=== PATIENT | male | born 1960 | race Caucasian/White ===

== ENCOUNTER 2017-11-28 10:02 | Observation (INO) | payer OTHER ==
[~2017-11-28] VITALS: Ht 177.8 cm; Wt 105.9 kg
[2017-11-28] MEDS ORDERED: ASPIRIN 81 MG CHEW PO STA (10:19)
--- NOTE | 2017-11-28 10:35 | EMERGENCY ROOM VISIT NOTE ---
History Report prepared by Brandon: Maggie Liang Under the Supervision of: Dr. Danilo Bosch D.O. First contact with patient: 10:15 Chief Complaint: CARDIAC ASSESSMENT Stated Complaint: CHEST PAIN, ABNORMAL EKG, SENT BY [facility] Nursing Triage Summary: Pt states was having mild substernal chest pain/pressure over the past couple weeks, related to exertion. Pt states went to PCP today and was sent here for abnormal EKG. History of Present Illness The patient is a 56 year old male who presents to the Emergency Room with complaints of intermittent episodes of chest pressure when he exerts himself over the past two weeks. The patient had a regular check up with his PCP this morning where he had EKG done which was abnormal. His PCP sent him to the ED for further evaluation. Presently, the patient denies any pain. He denies any swelling in his legs, back pain, or shortness of breath. The patient states when he has his episodes of pressure it is achey in his central chest. The patient notes some occasional alcohol use but denies any tobacco use. Source of History: patient Onset: two weeks ago Position: chest Quality: ache, pressure Timing: other (episodes) Modifying Factors (Worsening): exertion Associated Symptoms: + chest pain, No SOB, No back pain Review of Systems See HPI for pertinent positives & negatives. A total of 10 systems reviewed and were otherwise negative. Past Medical & Surgical Medical Problems: (1) Depression Family History Patient reports no known family medical history. Social History Smoking Status: Never Smoker Smokeless Tobacco Use: No Alcohol Use: occasionally Occupation Status: employed Current/Historical Medications Scheduled Escitalopram (Lexapro), 10 MG PO DAILY Lisinopril (Zestril), 5 MG PO DAILY Ranitidine (Zantac), 150 MG PO BID Red Yeast Rice Extract (Red Yeast Rice), 600 MG PO BID Allergies Coded Allergies: No Known Allergies (Unverified , 11/28/17) Physical Exam Vital Signs Date Time Temp Pulse Resp B/P (MAP) Pulse Ox O2 Delivery O2 Flow Rate FiO2 11/28/17 12:30 58 20 156/101 99 Room Air 11/28/17 10:49 58 20 157/86 99 Room Air 11/28/17 10:45 95 Room Air 11/28/17 10:30 66 11/28/17 10:09 36.8 63 18 165/100 99 Room Air Physical Exam GENERAL: Patient is awake, alert, and in no acute distress. Patient is resting comfortably and showing no signs of anxiety EYES: The conjunctivae are clear. The pupils are round and reactive. EARS, NOSE, MOUTH AND THROAT: The nose is without any evidence of any deformity. Mucous membranes are moist tongue is midline NECK: The neck is nontender and supple. RESPIRATORY: Normal respiratory effort is noted there is no evidence of wheezing rhonchi or rales CARDIOVASCULAR: Regular rate and rhythm noted there no murmurs rubs or gallops normal S1 normal S2 GASTROINTESTINAL: The abdomen is soft. Bowel sounds are present in all quadrants. Abdomen is nontender MUSCULOSKELETAL/EXTREMITIES: There is no evidence of gross deformity full range of motion is noted in the hips and shoulders SKIN: There is no obvious evidence of any rash. There are no petechiae, pallor or cyanosis noted. NEUROLOGIC: Patient is awake alert and oriented x3 strength is symmetric patellar reflexes are 2+ bilaterally Medical Decision & Procedures ER Provider Diagnostic Interpretation: Radiology results as stated below per my review and radiologist interpretation: CHEST ONE VIEW PORTABLE FINDINGS: The heart is normal in size. Mild superior mediastinal prominence likely relates to the AP portable technique. There is no focal pulmonary consolidation. There is no failure. There are no pleural effusions.[ IMPRESSION: AP portable study. No acute findings. Electronically signed by: Gianfranco Snyder M.D. Laboratory Results Test 11/28/17 10:37 Prothrombin Time 10.5 SECONDS (9.0-12.0) Prothromb Time International Ratio 1.0 (0.9-1.1) Activated Partial Thromboplast Time 25.6 SECONDS (21.0-31.0) Partial Thromboplastin Ratio 1.0 D-Dimer 300 ug/L FEU (0-500) Direct Bilirubin 0.2 mg/dl (0-0.2) Triglycerides Level 216 mg/dl (0-150) Cholesterol Level 203 mg/dl (0-200) HDL Cholesterol 38 mg/dl LDL Cholesterol, Calculated 122 mg/dl VLDL Cholesterol, Calculated 43 mg/dl Cholesterol/HDL Ratio 5.3 Lipase 113 U/L (73-393) Hepatitis C Antibody Screen NEG (NEG) Laboratory results per my review. Medications Administered Medications (Trade) Dose Ordered Sig/Darnell Route Start Time Stop Time Status Last Admin Dose Admin Aspirin (Aspirin Chew) 324 mg NOW STAT PO 2/27/18 10:19 11/28/17 10:21 DC 11/28/17 10:25 324 MG Sodium Chloride 1,000 ml @ 50 mls/hr Q20H IV 11/28/17 12:47 12/28/17 12:46 11/28/17 21:21 50 MLS/HR ECG Per My Interpretation Indication: chest pain Rate (beats per minute): 59 Rhythm: sinus bradycardia Findings: no ectopy, other (T-wave abnormalities in anterior leads) Comparison ECG Date: 12/03/14 Change: T-wave abnormalities new. ED Course 1018: The patient was evaluated in room C6. A complete history and physical examination were performed. 1019: Ordered Aspirin 324 mg PO. 1124: I updated the patient on his test results and the treatment plan. 1127: I paged Dr. YapCardiology. 1206: I discussed the patient's [facility] [place] The patient will be evaluated for further management. 1211: I discussed the patient's case with Dr. YapCardiology. Recommends the patient stay in the hospital for further evaluation. 1251: The patient is resting comfortably. He is agreeable to the treatment plan. Medical Decision Differential diagnosis: Etiologies such as cardiac ischemia, aortic dissection, pulmonary embolism, pneumonia, pneumothorax, musculoskeletal, infections, pericarditis, myocarditis , esophageal rupture, gastrointestinal, as well as others were entertained. Nursing notes reviewed. The patient is a 56-year-old male who presented to the emergency department for chest pain evaluation. The patient initially saw his primary care physician and discussed exertional chest pain symptoms he had been having over the previous 2 weeks. The patient had an EKG done in the office which showed biphasic T waves in the anterior leads. The patient presented to the emergency department and his initial EKG showed some improvement of these findings. I reviewed the patient's EKGs from the office. Given his risk factors I am very concerned that this could represent an underlying coronary lesion. The patient had initial cardiac biomarkers which were negative. At this time he has no pain. He was treated with aspirin. I discussed the patient's laboratory and radiographic studies with him. I also discussed the limitations of the emergency department workup for chest pain with him. Given the patient's risk factors and his initial EKG in the office I do feel the patient is at risk for an acute coronary syndrome. For this reason I discussed his case with the on- call [facility] hospitalist group. They have agreed to evaluate the patient in the emergency department for further management and disposition. I also discussed this case with the on-call [facility] money room supervisor. Medication Reconcilliation Current Medication List: was personally reviewed by me Blood Pressure Screening Patient's blood pressure: Elevated blood pressure Blood pressure disposition: Elevated BP felt to be situational Consults Time Called: 1127 Consulting Physician: Dr. YapCardiology Returned Call: 1211 I discussed the patient's case with Dr. YapCardiology. Recommends the patient stay in the hospital for further evaluation. Additional Consults: Time Called: 1200 Consulted Physician: Dr. Pawan Stallings Returned Call: 1206 Additional Comments: I discussed the patient's case with Dr. Pawan Stallings. The patient will be evaluated for further management. Impression Primary Impression: Exertional chest pain Additional Impression: Abnormal EKG Scribe Attestation The scribe's documentation has been prepared under my direction and personally reviewed by me in its entirety. I confirm that the note above accurately reflects all work, treatment, procedures, and medical decision making performed by me. Departure Information Dispostion Being Evaluated By Hospitalist Referrals Marisa Hernadez C.R.N.P. (PCP) Patient Instructions My [facility] Problem Qualifiers
[2017-11-28] MEDS ORDERED: ESCI10TA17 PO (10:51)
[2017-11-28] MEDS ORDERED: RANI150T85 PO (10:51)
[2017-11-28] MEDS ORDERED: LISI-729 PO (10:51)
[2017-11-28] MEDS ORDERED: RED1CAP5 PO (10:51)
--- NOTE | 2017-11-28 10:58 | DIAGNOSTIC IMAGING REPORT ---
CHEST ONE VIEW PORTABLE CLINICAL HISTORY: Atypical chest pain COMPARISON STUDY: No previous studies for comparison. FINDINGS: The heart is normal in size. Mild superior mediastinal prominence likely relates to the AP portable technique. There is no focal pulmonary consolidation. There is no failure. There are no pleural effusions.[ IMPRESSION: AP portable study. No acute findings. Electronically signed by: Gianfranco Snyder M.D. 11/28/2017 10:57 AM Dictated Date/Time: 11/28/2017 10:54 AM
[2017-11-28 10:59] LABS: BASO % 0.3 %; BASO ABS # 0.02 K/uL (0-0.2); EOS % 2.9 %; EOS ABS # 0.17 K/uL (0-0.5); HEMATOCRIT 40.8 % (42-52); HEMOGLOBIN 14.6 g/dL (14.0-18.0); IG# 0.01 K/uL (0.00-0.02); LYMPH % 34.9 %; LYMPH ABS # 2.03 K/uL (1.2-3.4); MEAN CELL VOLUME 83.8 fL (80-100); MEAN CORPUSCULAR HGB CONC 35.8 g/dl (32-36); MEAN PLATELET VOLUME 10.3 fL (7.4-10.4); MONO % 8.3 %; MONO ABS # 0.48 K/uL (0.11-0.59); NEUT % 53.4 %; PLATELET COUNT 157 K/uL (130-400); RED CELL DISTRIBUTION WIDTH CV 12.7 % (11.5-14.5); RED CELL DISTRIBUTION WIDTH SD 38.6 fL (36.4-46.3); WHITE BLOOD COUNT 5.81 K/uL (4.8-10.8)
[2017-11-28 11:07] LABS: PTT PATIENT 25.6 SECONDS (21.0-31.0)
[2017-11-28 11:15] LABS: ALBUMIN 4.1 gm/dl (3.4-5.0); ALT/SGPT 32 U/L (12-78); BLOOD UREA NITROGEN 17 mg/dl (7-18); CALCIUM 8.7 mg/dl (8.5-10.1); CARBON DIOXIDE 26 mmol/L (21-32); CREATININE 1.23 mg/dl (0.60-1.40); GLUCOSE 87 mg/dl (70-99); LIPASE 113 U/L (73-393); POTASSIUM 3.8 mmol/L (3.5-5.1); SODIUM 138 mmol/L (136-145)
[2017-11-28 11:20] LABS: ALKALINE PHOSPHATASE 67 U/L (45-117); AST/SGOT 16 U/L (15-37); TOTAL PROTEIN 7.5 gm/dl (6.4-8.2)
[2017-11-28] MEDS ORDERED: SODIUM CHLORIDE 0.9% 1000ML 1,000 ML IV SCH (12:47)
--- NOTE | 2017-11-28 12:59 | History and Physical ---
History & Physical Date & Time of Service: Nov 28, 2017 at 12:52 Chief Complaint: Chest Pain, Abnormal Ekg, Sent By [facility] Primary Care Physician: Marisa Hernadez C.R.N.P. History of Present Illness Source: patient, hospital records 56-year-old man with past medical history of hypertension, borderline dyslipidemia presented to the hospital with 2 weeks history of substernal chest pain. Patient said that pain is mainly exertional last about 2-3 minutes, localized in the substernal area, at the most his pain is 4 out of 10 but usually much milder. Sometimes pain is referred to his head, he feels like he is going to have headache but is not referred to the left shoulder or neck. Pain is aggravated by exertion and relieved by rest no other associated factors , denies any dizziness, diaphoresis, nausea or presyncope. Patient has no family history of heart disease that she is aware of but his father might have hypertension. Patient has mild hypertension controlled by only one medicine. Also have mild dyslipidemia controlled by red yeast rice. Patient went for a regular checkup to her primary physician, he was found to have an abnormal EKG and was sent to the ED for further evaluation. Patient does not smoke, drinks alcohol socially Unaware of his grandparents medical history but his parents does not have any cardiac condition Patient 2 weeks ago had a 6 hours flight Family History Patient reports no known family medical history. Social History Smoking Status: Never Smoker Smokeless Tobacco Use: No Occupational Status: employed Allergies Coded Allergies: No Known Allergies (Unverified , 11/28/17) Home Medications Scheduled Escitalopram (Lexapro), 10 MG PO DAILY Lisinopril (Zestril), 5 MG PO DAILY Ranitidine (Zantac), 150 MG PO BID Red Yeast Rice Extract (Red Yeast Rice), 600 MG PO BID Review of Systems Review of system Constitutional: No fever / no chills / no sweats / no weakness / no fatigue Eyes: no blurring of vision / no eye pain / no discharge / no redness ENT: no hearing loss / no epistaxis /no swallowing problems Respiratory: no cough / no wheezing / no SOB / no hemoptysis Cardiovascular: Chest pain as prescribed in HPI/ no lower extremity edema / no palpitation Abdomen: no pain / no nausea / no vomiting / no constipation Musculoskeletal: no joint pain / no muscle pain / no joint swelling Genitourinary: no dysuria / no incontinence / no urinary retention Neurologic: no focal weakness / no numbness/tingling / no ataxia Psychiatric: no depression symptoms / no anxiety / no insomnia Endocrine: no excessive thirst / no excessive urination Hematologic: no abnormal bleeding / no bruising / no LN swelling Skin: No rash / no pallor Physical Exam Vital Signs Date Time Temp Pulse Resp B/P (MAP) Pulse Ox O2 Delivery O2 Flow Rate FiO2 11/28/17 12:30 58 20 156/101 99 Room Air 11/28/17 10:49 58 20 157/86 99 Room Air 11/28/17 10:45 95 Room Air 11/28/17 10:30 66 11/28/17 10:09 36.8 63 18 165/100 99 Room Air Physical examination General patient appears to be comfortable, not in acute distress HEENT: Atraumatic , normocephalic /no jaundice /no pallor /anicteric /no dry mucous membrane /normal external ear inspection Neck: Supple /no swelling /central trach Heart: S1/S2 normal/regular rate and rhythm/no gallop /no rub /no murmur Lungs: Clear to auscultation bilaterally/normal chest with expansion/no rhonchi/ no rales/no wheezing/no use of accessory muscles of respiration Abdomen: Soft/nontender/no guarding/no rebound/no organomegaly/no pulsatile mass Musculoskeletal: No swelling/no edema/no tenderness/normal range of motion Neuro exam: Awake alert oriented 3/cranial nerves II through XII appear to be intact/sensation intact/moves all extremities/no abnormal movements Psychiatric evaluation: No depressed mood/normal affect Skin: No rash on exposed skin area/no erythema Extremity: Normal pulse/no pitting edema/no clubbing or cyanosis Endocrine/lymphatic: No obvious lymphadenopathy /no lymphedema Diagnostics Laboratory Results Results Past 24 Hours Test 11/28/17 10:37 Range/Units White Blood Count 5.81 4.8-10.8 K/uL Red Blood Count 4.87 4.7-6.1 M/uL Hemoglobin 14.6 14.0-18.0 g/dL Hematocrit 40.8 42-52 % Mean Corpuscular Volume 83.8 80-100 fL Mean Corpuscular Hemoglobin 30.0 25-34 pg Mean Corpuscular Hemoglobin Concent 35.8 32-36 g/dl Platelet Count 157 130-400 K/uL Mean Platelet Volume 10.3 7.4-10.4 fL Neutrophils (%) (Auto) 53.4 % Lymphocytes (%) (Auto) 34.9 % Monocytes (%) (Auto) 8.3 % Eosinophils (%) (Auto) 2.9 % Basophils (%) (Auto) 0.3 % Neutrophils # (Auto) 3.10 1.4-6.5 K/uL Lymphocytes # (Auto) 2.03 1.2-3.4 K/uL Monocytes # (Auto) 0.48 0.11-0.59 K/uL Eosinophils # (Auto) 0.17 0-0.5 K/uL Basophils # (Auto) 0.02 0-0.2 K/uL RDW Standard Deviation 38.6 36.4-46.3 fL RDW Coefficient of Variation 12.7 11.5-14.5 % Immature Granulocyte % (Auto) 0.2 % Immature Granulocyte # (Auto) 0.01 0.00-0.02 K/uL Prothrombin Time 10.5 9.0-12.0 SECONDS Prothromb Time International Ratio 1.0 0.9-1.1 Activated Partial Thromboplast Time 25.6 21.0-31.0 SECONDS Partial Thromboplastin Ratio 1.0 Sodium Level 138 136-145 mmol/L Potassium Level 3.8 3.5-5.1 mmol/L Chloride Level 106 98-107 mmol/L Carbon Dioxide Level 26 21-32 mmol/L Anion Gap 6.0 3-11 mmol/L Blood Urea Nitrogen 17 7-18 mg/dl Creatinine 1.23 0.60-1.40 mg/dl Est Creatinine Clear Calc Drug Dose 84.4 ml/min Estimated GFR () 76.7 Estimated GFR (Non- 66.1 BUN/Creatinine Ratio 13.7 10-20 Random Glucose 87 70-99 mg/dl Calcium Level 8.7 8.5-10.1 mg/dl Total Bilirubin 0.6 0.2-1 mg/dl Direct Bilirubin 0.2 0-0.2 mg/dl Aspartate Amino Transf (AST/SGOT) 16 15-37 U/L Alanine Aminotransferase (ALT/SGPT) 32 12-78 U/L Alkaline Phosphatase 67 45-117 U/L Troponin I < 0.015 0-0.045 ng/ml Total Protein 7.5 6.4-8.2 gm/dl Albumin 4.1 3.4-5.0 gm/dl Lipase 113 73-393 U/L Impression Assessment and Plan 56-year-old man presented to the hospital with exertional chest pain relieved by rest. History of recent 6 hours flight 2 weeks ago Assessment Exertional chest pain rule out ACS Hypertension Dyslipidemia controlled with red yeast Obesity History of recent flight/travel rule out DVT/PE plan: Observe at telemetry as chest pain is exertional and relieved by rest, it sounds typical anginal pain, but will order stat d-dimer given his recent history of travel obtain serial cardiac enz NTG SL/topical prn CP consult car repairman pain management Check hemoglobin A1c/lipids to stratify patient risk factors repeat EKG prn chest pain Resuscitation Status FULL RESUSCITATION VTE Prophylaxis Given or contraindicated: Enoxaparin (Lovenox)SQ
[2017-11-28] MEDS ORDERED: ONDANSETRON INJ 2 MG/ML 2 ML VIAL IV PRN (13:00)
[2017-11-28] MEDS ORDERED: ZOLPIDEM TARTRATE 5 MG TAB PO PRN ×2 (13:00)
[2017-11-28] MEDS ORDERED: ALUMINUM/MAGNESIUM/SIMETH (MAALOX MAX) 30 ML UDC PO PRN (13:00)
[2017-11-28] MEDS ORDERED: POLYETHYLENE (MIRALAX) 17 GM PACK PO PRN (13:00)
[2017-11-28] MEDS ORDERED: ACETAMINOPHEN 325 MG TAB PO PRN (13:00)
[2017-11-28] MEDS ORDERED: NITROGLYCERIN 0.4 MG SL PER TAB CHARGE SL PRN (13:00)
[2017-11-28] MEDS ORDERED: MAGNESIUM HYDROXIDE SUSP 30 ML UDC PO PRN (13:00)
[2017-11-28 15:00] VITALS: BP 144/75; PULSE 61; TEMP 37.1; O2SAT 98; Ht 177.8 cm; Wt 105.9 kg
[2017-11-28 16:00] VITALS: O2SAT 98
[2017-11-28 16:03] VITALS: BP 145/95; PULSE 58; TEMP 36.7; O2SAT 93
[2017-11-28] MEDS ORDERED: IV FLUIDS COMPLETED PRN (16:15)
[2017-11-28] MEDS: ATORVASTATIN 40 MG TAB PO SCH (16:32)
[2017-11-28] MEDS: ENOXAPARIN 40 MG/0.4 ML SYR SC SCH (16:32)
--- NOTE | 2017-11-28 19:00 | Cardiology Consultation ---
Cardiology Consultation Date of Consultation: Nov 28, 2017. Requesting Physician: Dr. Amaral Reason for Consultation: Chest Pain History of Present Illness Mr. Jose is a pleasant 56-year-old man admitted in the setting new exertional chest pain over the last 2 weeks. Patient with no prior cardiac history. Has a history mild hypertension, dyslipidemia. No family history of premature coronary disease. Lifelong nonsmoker. Over last 2 weeks endorses exertional chest pressure occurring when walks up steps or AFib walks on level ground with pace. Symptoms are relieved quickly with rest. Longest episode lasted approximately 5 minutes. Last episode 24 hours ago. Pain is nonradiating, no associated shortness of breath, palpitations, presyncope, nausea or diaphoresis. Denies any prior similar episodes. No fevers, chills, productive cough. Had prolonged air travel 2 weeks prior. No lower extremity swelling or pain. Presented to his primary care provider today where reportedly EKG was different than 2015 and sent to ED. In emergency department patient was hypertensive with systolic pressures 150s. He has been chest pain-free all day. His presenting EKG showed sinus rhythm with subtle T-wave abnormalities in V4, V5. No EKG available for comparison. First troponin was negative. Past Medical/Surgical History Medical Problems: 1. Depression 2. Hypertension 3. Dyslipidemia 4. Obesity Family History Patient reports no known family medical history. 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 with grown children. Denies any tobacco, alcohol or illicit drugs. Review of Systems 10 point review of systems was completed and was otherwise negative unless stated in HPI Allergies Coded Allergies: No Known Allergies (Unverified , 11/28/17) Medications Current Inpatient Medications Medications (Trade) Dose Ordered Sig/Darnell Route Start Time Stop Time Status Last Admin Dose Admin Escitalopram Oxalate (Lexapro Tab) 10 mg DAILY PO 11/29/17 09:00 12/29/17 08:59 Lisinopril (Zestril Tab) 5 mg DAILY PO 11/29/17 09:00 12/29/17 08:59 Ranitidine HCl (zANTac TAB) 150 mg BID PO 11/28/17 21:00 12/28/17 20:59 Enoxaparin Sodium (Lovenox Inj) 40 mg Q24H SC 11/28/17 16:00 12/28/17 15:59 11/28/17 16:32 40 MG Sodium Chloride 1,000 ml @ 50 mls/hr Q20H IV 11/28/17 12:47 12/28/17 12:46 Acetaminophen (Tylenol Tab) 650 mg Q4H PRN PO 11/28/17 13:00 12/28/17 12:59 Al Hydrox/Mg Hydrox/Simethicone (Maalox Max Susp) 15 ml Q4H PRN PO 11/28/17 13:00 12/28/17 12:59 Magnesium Hydroxide (Milk Of Magnesia Susp) 30 ml Q12H PRN PO 11/28/17 13:00 12/28/17 12:59 Zolpidem Tartrate (Ambien Tab) 5 mg HSZ PRN PO 11/28/17 13:00 12/28/17 12:59 Ondansetron HCl (Zofran Inj) 4 mg Q6H PRN IV 11/28/17 13:00 12/28/17 12:59 Nitroglycerin (Nitrostat Tab) 0.4 mg UD PRN SL 11/28/17 13:00 12/28/17 12:59 Aspirin (Ecotrin Tab) 325 mg QAM PO 11/29/17 09:00 12/29/17 08:59 Polyethylene (Miralax Powder Packet) 17 gm DAILY PRN PO 11/28/17 13:00 12/28/17 12:59 Atorvastatin Calcium (Lipitor Tab) 40 mg QAM PO 11/28/17 14:24 12/28/17 14:23 11/28/17 16:32 40 MG Miscellaneous (Iv Fluids Completed) 1 ea PRN PRN N/A 11/28/17 16:15 11/28/18 16:14 Physical Exam Vital Signs Past 12 Hours Date Time Temp Pulse Resp B/P (MAP) Pulse Ox O2 Delivery O2 Flow Rate FiO2 11/28/17 16:03 36.7 58 16 145/95 (112) 93 Room Air 11/28/17 16:00 98 Room Air 11/28/17 15:00 37.1 61 18 144/75 98 Room Air 11/28/17 14:03 62 20 163/89 11/28/17 13:30 63 20 150/112 Room Air 11/28/17 12:30 58 20 156/101 99 Room Air 11/28/17 10:49 58 20 157/86 99 Room Air 11/28/17 10:45 95 Room Air 11/28/17 10:30 66 11/28/17 10:09 36.8 63 18 165/100 99 Room Air General: Comfortable, no acute distress Eyes: Sclerae anicteric, extraocular movements intact HENT: Oropharynx clear mucous membranes moist Neck: Normal carotid upstrokes, no bruits. No JVD. Lungs: Clear to auscultation bilaterally, no rhonchi or wheezes Cardiac: Regular rate and rhythm, no murmurs, rubs or gallops. Vascular: 2+ radial, DP and PT pulses. No varicosities. Abdomen: Soft, nontender, nondistended, positive bowel sounds. Extremities: Well perfused, no peripheral edema Skin: No rashes or lesions. Neuro: Nonfocal Psych: Alert orient x3, normal affect and mood Data Laboratory Results: Last 24 Hours Test 11/28/17 10:37 11/28/17 18:27 White Blood Count 5.81 K/uL Red Blood Count 4.87 M/uL Hemoglobin 14.6 g/dL Hematocrit 40.8 % Mean Corpuscular Volume 83.8 fL Mean Corpuscular Hemoglobin 30.0 pg Mean Corpuscular Hemoglobin Concent 35.8 g/dl Platelet Count 157 K/uL Mean Platelet Volume 10.3 fL Neutrophils (%) (Auto) 53.4 % Lymphocytes (%) (Auto) 34.9 % Monocytes (%) (Auto) 8.3 % Eosinophils (%) (Auto) 2.9 % Basophils (%) (Auto) 0.3 % Neutrophils # (Auto) 3.10 K/uL Lymphocytes # (Auto) 2.03 K/uL Monocytes # (Auto) 0.48 K/uL Eosinophils # (Auto) 0.17 K/uL Basophils # (Auto) 0.02 K/uL RDW Standard Deviation 38.6 fL RDW Coefficient of Variation 12.7 % Immature Granulocyte % (Auto) 0.2 % Immature Granulocyte # (Auto) 0.01 K/uL Prothrombin Time 10.5 SECONDS Prothromb Time International Ratio 1.0 Activated Partial Thromboplast Time 25.6 SECONDS Partial Thromboplastin Ratio 1.0 D-Dimer 300 ug/L FEU Sodium Level 138 mmol/L Potassium Level 3.8 mmol/L Chloride Level 106 mmol/L Carbon Dioxide Level 26 mmol/L Anion Gap 6.0 mmol/L Blood Urea Nitrogen 17 mg/dl Creatinine 1.23 mg/dl Est Creatinine Clear Calc Drug Dose 84.4 ml/min Estimated GFR () 76.7 Estimated GFR (Non- 66.1 BUN/Creatinine Ratio 13.7 Random Glucose 87 mg/dl Calcium Level 8.7 mg/dl Total Bilirubin 0.6 mg/dl Direct Bilirubin 0.2 mg/dl Aspartate Amino Transf (AST/SGOT) 16 U/L Alanine Aminotransferase (ALT/SGPT) 32 U/L Alkaline Phosphatase 67 U/L Troponin I < 0.015 ng/ml Total Protein 7.5 gm/dl Albumin 4.1 gm/dl Triglycerides Level 216 mg/dl Cholesterol Level 203 mg/dl HDL Cholesterol 38 mg/dl LDL Cholesterol, Calculated 122 mg/dl VLDL Cholesterol, Calculated 43 mg/dl Cholesterol/HDL Ratio 5.3 Lipase 113 U/L Hepatitis C Antibody Screen NEG Imaging: Chest x-ray--no acute cardiopulmonary process EKG: Sinus bradycardia, ventricular rate of 59, subtle biphasic T-waves V4, V5 Telemetry reviewed: Sinus rhythm no events Assessment & Plan 1. Chest pain 2. Hypertension 3. Dyslipidemia Patient here with new onset typical chest pain over last 2 weeks. Cardiac enzymes unremarkable, EKG nonspecific. No other clear noncardiac etiologies for patient's chest pain and suspicion for possible unstable angina is elevated. In that setting recommend additional risk stratification. Low MAYTE/ zechariah score suggesting patient is low risk for adverse cardiac events and in that setting would proceed with stress test/ischemia guided strategy. Recommend going forward-- -- continue to monitor on telemetry --trend troponin --NPO past midnight with plan for exercise stress echo in a.m. --titrate ROBBI-inhibitor for hypertension --regardless of stress test findings patient at elevated risk for ASCVD going forward and would continue aspirin, high-intensity statin on discharge
[2017-11-28 20:05] VITALS: BP 155/91; PULSE 64; TEMP 37.1; O2SAT 97
[2017-11-28] MEDS: RANITIDINE HCL 150 MG TAB PO SCH (21:20)
[2017-11-28] MEDS: LISINOPRIL 5 MG TAB PO SCH (21:21)
[2017-11-28] MEDS: ESCITALOPRAM OXALATE 10 MG TAB PO SCH (21:21)
[2017-11-28 23:18] VITALS: BP 148/88; PULSE 60; TEMP 36.9; O2SAT 98
[2017-11-29] VITALS (12 sets, daily range): BP systolic 124–149; BP diastolic 78–98; PULSE 55–80; TEMP 36.5–37.2; O2SAT 94–98
[2017-11-29 07:08] LABS: BASO % 0.5 %; BASO ABS # 0.03 K/uL (0-0.2); EOS % 3.6 %; EOS ABS # 0.23 K/uL (0-0.5); HEMATOCRIT 41.2 % (42-52); HEMOGLOBIN 14.6 g/dL (14.0-18.0); IG# 0.01 K/uL (0.00-0.02); LYMPH % 41.2 %; LYMPH ABS # 2.63 K/uL (1.2-3.4); MEAN CELL VOLUME 84.1 fL (80-100); MEAN CORPUSCULAR HEMOGLOBIN 29.8 pg (25-34); MEAN CORPUSCULAR HGB CONC 35.4 g/dl (32-36); MEAN PLATELET VOLUME 9.8 fL (7.4-10.4); MONO ABS # 0.51 K/uL (0.11-0.59); NEUT % 46.5 %; NEUT ABS # 2.97 K/uL (1.4-6.5); PLATELET COUNT 152 K/uL (130-400); RED CELL DISTRIBUTION WIDTH CV 12.8 % (11.5-14.5); RED CELL DISTRIBUTION WIDTH SD 38.5 fL (36.4-46.3); WHITE BLOOD COUNT 6.38 K/uL (4.8-10.8)
[2017-11-29] MEDS: ATORVASTATIN 40 MG TAB PO SCH (07:27)
[2017-11-29] MEDS: RANITIDINE HCL 150 MG TAB PO SCH ×2 (07:28→22:03)
[2017-11-29 07:46] LABS: ALBUMIN 3.7 gm/dl (3.4-5.0); CALCIUM 8.7 mg/dl (8.5-10.1); CREATININE 1.3 mg/dl (0.60-1.40)
[2017-11-29] MEDS ORDERED: ASPIRIN 325 MG ECTAB PO SCH (09:00)
[2017-11-29] MEDS ORDERED: PERFLUTREN LIPID MICROSPHERE (DEFINITY) IV ONE (09:34)
[2017-11-29 09:42] LABS: HEMOGLOBIN A1C 5.2 % (4.5-5.6)
--- NOTE | 2017-11-29 11:58 | Hospitalist Progress Note ---
Hospitalist Progress Note Date of Service Nov 29, 2017. (Michelle Campo PA-C) Subjective Pt evaluation today including: conversation w/ patient, physical exam, chart review, lab review, review of studies Pain: None PO Intake: NPO for cardiac cath Voiding: no voiding problems The patient was seen and examined this morning. Pt reports doing well currently , he had stress echo this morning which he failed. Pt notes he has noticed increased chest pain over the past 2 weeks when he was doing something exertional like walking at a fast pace, going up stairs or lifting something heavy. As far as risk factors: pt has gained 20-25lbs in the past year. He does not exercise regularly, last time was about 1.5 years ago. Never smoked but was exposed by parents who smoked in the home until age 20. He does not take medication for lipids, but takes red yeast. Pt understands the plan for a cardiac cath today by Dr. Albarran. All his questions and concerns were answered. Constitutional: No fever, No chills, No sweats, No fatigue Eyes: No diplopia, No problem reported ENT: No nasal symptoms, No trouble swallowing Respiratory: No cough, No wheezing, No shortness of breath Cardiovascular: No chest pain, No orthopnea, No edema Abdomen: No pain, No nausea, No vomiting, No diarrhea, No constipation Musculoskeletal: No joint pain, No muscle pain Male : No dysuria Neurologic: No weakness, No numbness/tingling (Michelle Campo PA-C ) Objective Vital Signs Date Time Temp Pulse Resp B/P (MAP) Pulse Ox O2 Delivery O2 Flow Rate FiO2 11/29/17 10:55 37.0 80 18 144/87 (106) 98 Room Air 11/29/17 08:00 Room Air 11/29/17 07:45 36.8 59 18 142/93 (109) 98 Room Air 11/29/17 04:00 Room Air 11/29/17 03:39 36.5 55 17 140/91 (107) 98 Room Air 11/29/17 00:00 Room Air 11/28/17 23:18 36.9 60 18 148/88 (108) 98 Room Air 11/28/17 20:05 37.1 64 20 155/91 (112) 97 Room Air 11/28/17 20:00 Room Air 11/28/17 16:03 36.7 58 16 145/95 (112) 93 Room Air 11/28/17 16:00 98 Room Air 11/28/17 15:00 37.1 61 18 144/75 98 Room Air 11/28/17 14:03 62 20 163/89 11/28/17 13:30 63 20 150/112 Room Air 11/28/17 12:30 58 20 156/101 99 Room Air (Michelle Campo PA-C) Physical Exam General Appearance: WD/WN, no apparent distress, + obese Eyes: PERRL, EOMI ENT: hearing grossly normal, pharynx normal Neck: supple, no JVD Respiratory/Chest: chest non-tender, lungs clear, no respiratory distress, no accessory muscle use Cardiovascular: regular rate, rhythm, + systolic murmur Abdomen: normal bowel sounds, non tender, soft Extremities: non-tender, no pedal edema, no calf tenderness Neurologic/Psychiatric: alert, normal mood/affect, oriented x 3 Skin: normal color, warm/dry (Michelle Campo, JAZZY-C) Laboratory Results Last 24 Hours Test 11/28/17 18:27 11/29/17 00:29 11/29/17 06:49 Troponin I < 0.015 ng/ml < 0.015 ng/ml < 0.015 ng/ml White Blood Count 6.38 K/uL Red Blood Count 4.90 M/uL Hemoglobin 14.6 g/dL Hematocrit 41.2 % Mean Corpuscular Volume 84.1 fL Mean Corpuscular Hemoglobin 29.8 pg Mean Corpuscular Hemoglobin Concent 35.4 g/dl Platelet Count 152 K/uL Mean Platelet Volume 9.8 fL Neutrophils (%) (Auto) 46.5 % Lymphocytes (%) (Auto) 41.2 % Monocytes (%) (Auto) 8.0 % Eosinophils (%) (Auto) 3.6 % Basophils (%) (Auto) 0.5 % Neutrophils # (Auto) 2.97 K/uL Lymphocytes # (Auto) 2.63 K/uL Monocytes # (Auto) 0.51 K/uL Eosinophils # (Auto) 0.23 K/uL Basophils # (Auto) 0.03 K/uL RDW Standard Deviation 38.5 fL RDW Coefficient of Variation 12.8 % Immature Granulocyte % (Auto) 0.2 % Immature Granulocyte # (Auto) 0.01 K/uL Sodium Level 138 mmol/L Potassium Level 4.0 mmol/L Chloride Level 106 mmol/L Carbon Dioxide Level 25 mmol/L Anion Gap 7.0 mmol/L Blood Urea Nitrogen 18 mg/dl Creatinine 1.30 mg/dl Est Creatinine Clear Calc Drug Dose 79.0 ml/min Estimated GFR () 71.7 Estimated GFR (Non- 61.9 BUN/Creatinine Ratio 13.5 Random Glucose 96 mg/dl Estimated Average Glucose 103 mg/dl Hemoglobin A1c 5.2 % Calcium Level 8.7 mg/dl Magnesium Level 2.3 mg/dl Total Bilirubin 0.6 mg/dl Aspartate Amino Transf (AST/SGOT) 14 U/L Alanine Aminotransferase (ALT/SGPT) 29 U/L Alkaline Phosphatase 67 U/L Total Protein 7.0 gm/dl Albumin 3.7 gm/dl Globulin 3.3 gm/dl Albumin/Globulin Ratio 1.1 (Michelle Campo PA-C) Assessment and Plan Chest pain r/o Diastolic CHF HTN HLD Obesity, BMI 33.3 - Admitted to tele - Troponins negative x 3 - Pt failed stress treadmill test this morning so has been scheduled for cardiac cath today at 1pm per Dr. Albarran Pt will go to ICU after procedure, trend troponins - 2D Echo completed: * -- Conclusions -- * Left ventricular systolic function is normal. * Grade I diastolic dysfunction, (abnormal relaxation pattern). * Right ventricular systolic pressure is normal. * Abnormal exercise echocardiogram with development of index symptoms and wall motion abnormality suggestive of ischemia in the LAD territory - Cardiology on board - appreciate recs - Started atorvastatin 40 mg QPM as high statin therapy with elevated cholesterol of 203 and triglycerides on 216 - Diet and weight loss encouraged at bedside today- he admits to gaining 25 lbs in the last 1.5 yrs. - Check hemoglobin A1c = 5.2 - Drinks 3 alcoholic drinks per week. - No hx of smoking however was exposed to second hand x 20 years d/t parents smoking in home. DVT ppx: heparin, teds, scds CODE STATUS: FULL CODE Disposition: From home, lives with , will go to ICU after cardiac cath today. (Michelle Campo PA-C) Supervising Note Dr. Padilla I performed a history and physical examination on the patient. I reviewed above note and agree with it. I discussed plan with APC and patient. During my face to face encounter with the patient, I answered all of the patient's questions. II saw patient after the cath. Patient did not require to be transferred to the ICU. Patient denies any symptoms at this time. I explained to him the importance of continuing the plavix, ASA, and statin. I reiterated that if he is non compliant with the Plavix, he may have serious complications that may even be life threatening. Patient showed understanding. Patient is hoping for an early discharge. (Catrachito Padilla M.D.)
--- NOTE | 2017-11-29 13:05 | EXERCISE STRESS ECHO ---
*NOTICE TO RECEIVING DEMOCRAT AGENCY This information is strictly Confidential and protected under [place] law. [place] law prohibits you from making any further disclosure of this information unless further disclosure is expressly permitted by the written consent of the person to whom it pertains or is authorized by law. A general authorization for the release of medical or other information is not sufficient for this purpose. Hospital accepts no responsibility if the information is made available to any other person, INCLUDING THE PATIENT. Interpretation Summary * Name: RENEE COLLAZO Study Date: 11/29/2017 08:00 AM BP: 137/96 mmHg * Patient Location: C.2T\S\S230\S\1 HR: 80 * : 1960 (M/d/yyyy) Gender: Male Height: 70 in * Age: 56 yrs Ethnicity: [place] Weight: 237 lb * Ordering Physician: Abad Albarran * Referring Physician: Self, Referred * Performed By: Mary Alice Doan RDCS * * Reason For Study: Chest pain * BSA: 2.2 m2 * -- Conclusions -- * Left ventricular systolic function is normal. * Grade I diastolic dysfunction, (abnormal relaxation pattern). * Right ventricular systolic pressure is normal. * Abnormal exercise echocardiogram with development of index symptoms and wall motion abnormality suggestive of ischemia in the LAD territory Procedure Details * ECHOEX, CPT #[id number] * ECHO DOPPLER, CPT #[id number] * ECHO COLOR FLOW, CPT #[id number] * A contrast injection of Definity was performed to improve assessment of LV function. * Contrast was injected into an intravenous site in the right arm. * One vial of Definity ultrasound contrast was diluted in normal saline to a total volume of 10 ml. A total of '4' ml of solution was administered during imaging. * Lot # [id number] of Definity utilized for procedure. * Expiration date NOV 20. * The attending nurse who injected the contrast agent was Amparo Davalos RN. Left Ventricular Findings with Stress * Abnormal exercise echocardiogram with development of index symptoms and wall motion abnormality suggestive of ischemia in the LAD territory Left Ventricle * The left ventricle is normal in size. * There is normal left ventricular wall thickness. * Ejection Fraction = 65-70%. * Left ventricular systolic function is normal. * Grade I diastolic dysfunction, (abnormal relaxation pattern). * The left ventricular wall motion is normal at rest. Right Ventricle * The right ventricle is normal in size and function. * The right ventricular systolic function is normal as assessed by tricuspid annular plane systolic excursion (TAPSE) (normal >1.5 cm). Atria * The left atrial size is normal. * Right atrial size is normal. Mitral Valve * The mitral valve anatomy is normal. * Significant mitral regurgitation is absent. Tricuspid Valve * The tricuspid valve is not well visualized, but is grossly normal. * There is trace tricuspid regurgitation. * Right ventricular systolic pressure is normal. Aortic Valve * The aortic valve is normal in structure and function. * The aortic valve is trileaflet. * No hemodynamically significant valvular aortic stenosis. * There is no significant aortic regurgitation. Great Vessels * The aortic root is normal size. Pericardium * There is no pericardial effusion. Stress Parameters * Normal sinus rhythm with incomplete right bundle branch block * There is ST segment flattening without significant depression at peak exertion * The stress portion of this study was personally supervised by the undersigned interpreting physician. * Rest heart rate was '80' BPM. * Rest blood pressure was '137/96' * Maximum heart rate achieved was 141 bpm. * Maximum heart rate was 84 % of maximum age-predicted heart rate. * Maximum blood pressure was '209/101' * Total exercise time was '10:00' * Maximum exercise MET level achieved was '11.60' METS * Maximum treadmill speed was '4.20' miles per hour. * Maximum treadmill elevation was '16.00'% grade. * Exercise was terminated due to 'patient fatigue' Left Ventricular Findings with Stress * Baseline EKG demonstrated normal sinus rhythm with incomplete right bundle branch block At peak exertion there was some ST segment flattening without overt depression Baseline echocardiogram was normal There was development significant wall motion abnormality involving akinesis and mild dyskinesis of the distal anterior wall and apex. There was some mild hypokinesis involving the distal lateral wall Patient did report mild chest discomfort at peak exertion similar to his presenting symptoms MMode 2D Measurements and Calculations IVSd 1.0 cm LVIDd 4.6 cm LVIDs 2.9 cm LVPWd 10 cm IVS/LVPW 1.0 FS 38.0 % EDV(Teich) 98.3 ml ESV(Teich) 31.3 ml EF(Teich) 68.2 % EDV(cubed) 98.6 ml ESV(cubed) 23.5 ml EF(cubed) 76.1 % LV mass(C)d 163.1 grams LV mass(C)dI 72.7 grams/m\S\2 SV(Teich) 67.0 ml SI(Teich) 29.9 ml/m\S\2 SV(cubed) 75.1 ml SI(cubed) 33.5 ml/m\S\2 Ao root diam 3.1 cm Ao root area 7.4 cm\S\2 ACS 2.1 cm LA dimension 3.6 cm asc Aorta Diam 2.7 cm LA/Ao 1.2 LVOT diam 2.0 cm LVOT area 3.1 cm\S\2 LVAd ap4 36.1 cm\S\2 LVLd ap4 8.1 cm EDV(MOD-sp4) 131.3 ml EDV(sp4-el) 136.8 ml LVAs ap4 18.2 cm\S\2 LVLs ap4 6.3 cm ESV(MOD-sp4) 43.6 ml ESV(sp4-el) 44.9 ml EF(MOD-sp4) 66.8 % EF(sp4-el) 67.2 % LVAd ap2 35.4 cm\S\2 LVLd ap2 8.5 cm EDV(MOD-sp2) 119.3 ml EDV(sp2-el) 126.2 ml LVAs ap2 17.9 cm\S\2 LVLs ap2 6.6 cm ESV(MOD-sp2) 40.6 ml ESV(sp2-el) 41.3 ml EF(MOD-sp2) 66.0 % EF(sp2-el) 67.3 % LVLd %diff 4.3 % EDV(MOD-bp) 126.3 ml LVLs %diff 4.6 % ESV(MOD-bp) 42.9 ml EF(MOD-bp) 66.0 % SV(MOD-sp4) 87.7 ml SI(MOD-sp4) 39.1 ml/m\S\2 SV(MOD-sp2) 78.7 ml SI(MOD-sp2) 35.1 ml/m\S\2 SV(MOD-bp) 83.4 ml SI(MOD-bp) 37.2 ml/m\S\2 SV(sp4-el) 91.9 ml SI(sp4-el) 40.9 ml/m\S\2 SV(sp2-el) 84.9 ml SI(sp2-el) 37.8 ml/m\S\2 Doppler Measurements and Calculations MV E max jade 66.5 cm/sec MV A max jade 56.3 cm/sec MV E/A 1.2 MV dec time 0.28 sec Ao V2 max 122.5 cm/sec Ao max PG 6.0 mmHg Ao max PG (full) 2.1 mmHg JOHNNIE(V,A) 2.5 cm\S\2 JOHNNIE(V,D) 2.5 cm\S\2 LV V1 max PG 3.9 mmHg LV V1 max 98.5 cm/sec PA V2 max 115.4 cm/sec PA max PG 5.3 mmHg PA acc slope 423.9 cm/sec\S\2 PA acc time 0.14 sec PI max jade 146.6 cm/sec PI max PG 8.6 mmHg PI dec slope 137.0 cm/sec\S\2 PI P1/2t 313.4 msec TR max jade 186.8 cm/sec PA pr(Accel) 17.2 mmHg
[2017-11-29] MEDS ORDERED: MIDAZOLAM HCL 1 MG/ML 2ML VIAL ONE (14:37)
[2017-11-29] MEDS ORDERED: HEPARIN SOD (PORCINE) 1000 UNIT/ML 10 ML VIAL ONE (14:38)
[2017-11-29] MEDS ORDERED: FENTANYL CITRATE INJ 50 MCG/1 ML 2 ML VIAL ONE (14:38)
[2017-11-29] MEDS ORDERED: NiCARDipine HCL INJ 2.5 MG/ML 10 ML AMP ONE (14:38)
[2017-11-29] MEDS ORDERED: NITROGLYCERIN/D5W 100MCG/ML 20ML SYR ONE (14:38)
[2017-11-29] MEDS ORDERED: CLOPIDOGREL BISULFATE 300 MG TAB PO ONE (15:43)
--- NOTE | 2017-11-29 15:51 | Pre Sedation Assessment ---
Pre Sedation Assessment General Date of Sedation: Nov 29, 2017. Vital Signs Past 12 Hours Date Time Temp Pulse Resp B/P (MAP) Pulse Ox O2 Delivery O2 Flow Rate FiO2 11/29/17 12:00 Room Air 11/29/17 10:55 37.0 80 18 144/87 (106) 98 Room Air 11/29/17 08:00 Room Air 11/29/17 07:45 36.8 59 18 142/93 (109) 98 Room Air 11/29/17 04:00 Room Air Review Cardiovascular: regular rate, rhythm, no edema Lungs: chest non-tender, lungs clear Pre-Sedation Airway Assessment Smoking Status: Never Smoker Hx of Sleep Apnea: No Hx of difficult intubation: No Short Thick Neck: Yes Thyro-mental Distance: > 3 Finger Breadths Oral Cavity: WNL Mallampati Classification: Class II ASA Classification: Class II NPO Status Date of Last Intake of Fluids: Nov 28, 2017 Time of Last Intake of Fluids: 2099 Date of Last Intake of Solids: Nov 28, 2017 Time of Last Intake of Solids: 2099 Procedure Planning Contraindications for Sedation: None Current Medications Reviewed: Yes Notes The planned sedation has been discussed with the patient. Informed Consent was obtained. I have identified the patient, determined the appropriateness of sedation and have assessed the patient immediately prior to the procedure. All medicine(s) and interventions are by my order.
--- NOTE | 2017-11-29 15:51 | Post Sedation Assessment ---
Post Sedation Assessment General Date of Sedation Nov 29, 2017. Vital Signs: Vital Signs Past 12 Hours Date Time Temp Pulse Resp B/P (MAP) Pulse Ox O2 Delivery O2 Flow Rate FiO2 11/29/17 12:00 Room Air 11/29/17 10:55 37.0 80 18 144/87 (106) 98 Room Air 11/29/17 08:00 Room Air 11/29/17 07:45 36.8 59 18 142/93 (109) 98 Room Air 11/29/17 04:00 Room Air Post Procedure Recovery Score Activity: (2) Moves 4 extremities * Respiration: (2) Deep breath/cough Circulation: (2) +/-20% PreAnes Value Consciousness: (2) Fully Awake Oxygen Saturation: (2) > 92% On Room Air Post Anesthesia Score: 10 Discharge Sedation Level of Care: Fast Track Phase II Post Sedation Plan On clinical assessment, the patient appears to have tolerated the sedation without complications. Patient is recovering as anticipated. Patient will continue to be monitored by nursing and may be discharged when sedation discharge criteria are met per below protocol. Upon Completions of procedure and additional 15 minutes continue every 5 minute vital signs and the P.A.R. score; then discharge to a Phase I or Fast Track to Phase II per the following guidelines: * Discharge Patient to appropriate Phase II area if PAR is 8 or greater or return to pre- procedure baseline. The post - procedure orders will be as directed. * If PAR score is less than 8 or not return to pre-procedure baseline then patient will follow Phase I monitoring till PAR is reached for Phase II. The Phase I may be done in procedure room or may call to secure a Phase I area. * If naloxone or flumazenil are used for reversal, hold in Phase I for an additional 60 -120 minutes before discharge to Phase II. Please call the Sedation Physician to re-evaluate and complete post-note for discharge to Phase II area. Do NOT discharge from procedure sedation or Phase 1 until post- sedation evaluation note is complete by procedure /sedation MD Sedation Discharge Instructions to be given to the patient at discharge to home.
[2017-11-29] MEDS: ENOXAPARIN 40 MG/0.4 ML SYR SC SCH (16:00)
[2017-11-29] MEDS ORDERED: ACETAMINOPHEN 325 MG TAB PO PRN (16:00)
[2017-11-29] MEDS ORDERED: SODIUM CHLORIDE 0.9% 1000ML 750 ML IV SCH (16:00)
--- NOTE | 2017-11-29 16:00 | Cardiac Catheterization ---
Procedure Note Procedure Date Nov 29, 2017. Pre-Procedure Diagnosis Angina, Positive Stress Test AUC Score 7 Post-Procedure Diagnosis Severe CAD, Successful PCI, Normal Intracardiac Pressures Procedure(s) Performed Coronary Angiography, Left Heart Cath, Drug Eluting Stent Wind Field Service Manager Deion Marking Devices Assembler(s) Abby Estimated Blood Loss 20 Medication(s) Clopidogrel, Fentanyl, Heparin, Nicardipine, Nitroglycerin, Versed, Lidocaine 1% Summary of Findings Indication: Accelerating angina; High-risk stress test Access: 6Fr right radial artery Catheters: [place], JL3.5; EBU3.5 guide Findings: LM - Angiographically normal LAD - 95% mid LAD stenosis; distal luminal irregularities Circumflex - Large caliber vessel; luminal irregularities; gives off 3 OMs'; large 2nd OM with 40-50% proximal stenosis RCA - Dominant, large vessel; 20% proximal; 20-30% mid; distal luminal irregularities LVEDP - 12 -- PCI -- Antithrombotic therapy: Heparin, Clopidogrel Procedure: LM cannulated with EBU 3.5 guide BMW wire passed across lesion into distal vessel Mid LAD lesion predilated with 3.0 compliant balloon Dilated lesion stented with 4.0 x 15 Xience JAMAL Stent post-dilated with 4.5 noncompliant balloon IC vasodilators administered for spasm Post procedure MAYTE 3 flow, stent well expanded with minimal residual stenosis and no apparent cardiac complications. Arterial Closure: TR Band Summary: 1. Severe single vessel coronary artery disease - 95% focal mid LAD - 40-50% proximal OM2 2. Normal intracardiac filling pressure 3. Successful PCI of mid LAD with single drug-eluting stent (4.0 x 15 Xience; post-dilated with 4.5 NC). Recommendations: To PCU for continued monitoring Loaded with Clopidogrel 600mg in laboratory coordinator Continue dual-antiplatelet therapy for at least 6 months Continue statin, ASCVD risk factor modification Consult cardiac Rehab Hemodynamics Rest Ao: 122/75/97 Final Ao: 153/115/134 LV: 128/12 Recommendations PCI without planned CABG Specimens None Radiation Exposure (mGy) 3809 Contrast (mls) 170 Fluids (cc crystalloids) 80 Drains None Anesthesia Moderate Procedural Complication(s) None Disposition PCU ACC Data Cardiac Status Clinical evaluation leading to the procedure CAD Presntation: Unstable angina, Positive Stress Test Anginal Classification: CCS II Heart Failure: No, NYHA Class: CCS I Cardiogenic Shock w/in 24Hrs: No Cardiac Arrest w/in 24Hrs: No Imaging studies past 6 months: Yes Stress studies past 6 months: Yes Stress Echocardiogram: Yes - Positive, Risk/Extent of Ischemia (High) Stress Testing w/SPECT MPI: No Cardiac CTA: No Closure Device Percutaneous Entry Location: Radial Closure Device: Radial Band Recommendations: PCI without planned CABG PCI Indication: Unstable Angina, + Stress Test Lesion Segment Name: Mid LAD Culprit Artery: Yes Stenosis Prior to Rx (%): 95 Chronic Total Occlusion: No IVUS: No FFR: No Pre-Procedure MAYTE Flow: 3 Previously Treated Lesion: No Lesion Complexity: Non-High/Non-C Lesion Length (mm): 12 Thrombus Present: Yes Bifurcation Lesion: No Guidewire Across Lesion: Yes Guidewire: Post-Procedure MAYTE Flow: 3 Device(s) Deployed: Yes Intraprocedure Events Significant Dissection: No Perforation: No
--- NOTE | 2017-11-29 16:09 | Cardiology Follow-Up ---
Subjective Subjective Date of Service: Nov 29, 2017. Pt evaluation today including: conversation w/ patient, physical exam, chart review, lab review, review of studies, conversation w/ network security consultant, review of inpatient medication list Additional Details: No chest pain overnight. Tele reviewed -- sinus antonia Stress echo showed LAD distribution hypokinesis. Chest pain reproduced. Problem List Medical Problems: (1) Abnormal EKG Status: Acute (2) Exertional chest pain Status: Acute Review of Systems Constitutional: No fever, No chills, No sweats, No fatigue Eyes: No diplopia, No problem reported ENT: No nasal symptoms, No trouble swallowing Respiratory: No cough, No wheezing, No shortness of breath Cardiac: No chest pain, No orthopnea, No edema Abdomen: No pain, No nausea, No vomiting, No diarrhea, No constipation Musculoskeletal: No joint pain, No muscle pain Male : No dysuria Neurologic: No weakness, No numbness/tingling Objective Vital Signs Last Vital Signs Documentation Date Time Temp Pulse Resp B/P (MAP) Pulse Ox O2 Delivery O2 Flow Rate FiO2 11/29/17 12:00 Room Air 11/29/17 10:55 37.0 80 18 144/87 (106) 98 Physical Exam: General Appearance: no apparent distress, + obese ENT: hearing grossly normal, pharynx normal Neck: no JVD Respiratory/Chest: chest non-tender, lungs clear, no respiratory distress Cardiovascular: regular rate, rhythm Abdomen: normal bowel sounds, non tender, soft Extremities: non-tender, no pedal edema, no calf tenderness Neurologic/Psychiatric: alert, normal mood/affect, oriented x 3 Skin: normal color, warm/dry Assessment and Plan 1. Unstable angina/High risk stress test 2. Severe mid LAD CAD 3. Hypertension 4. Dyslipidemia Cardiac cath today showed severe mid LAD disease treated with single JAMAL. Good angiographic result and patient chest pain free post procedure. -- monitor on tele. standard TR band care -- Loaded with plavix in manager cath lab. Continue on DAPT for at least 1 year. -- high-intensity statin -- continue ROBBI, titrate up as BP tolerates. -- cardiac rehab as an d/c -- likely discharge tomorrow AM.
[2017-11-29] MEDS: LISINOPRIL 5 MG TAB PO SCH (22:03)
[2017-11-29] MEDS: ESCITALOPRAM OXALATE 10 MG TAB PO SCH (22:05)
[2017-11-30 03:55] VITALS: BP 125/81; PULSE 57; TEMP 36.7; O2SAT 98
[2017-11-30 07:35] VITALS: BP 134/89; PULSE 52; TEMP 36.5; O2SAT 96
[2017-11-30] MEDS: RANITIDINE HCL 150 MG TAB PO SCH (07:47)
[2017-11-30] MEDS ORDERED: ATOR80TA PO (08:53)
[2017-11-30] MEDS ORDERED: PLV75 PO (08:53)
[2017-11-30] MEDS ORDERED: ASPEC81 PO (08:53)
[2017-11-30] MEDS ORDERED: ATORVASTATIN 40 MG TAB PO SCH (09:00)
[2017-11-30] MEDS ORDERED: CLOPIDOGREL BISULFATE 75 MG TAB PO SCH (09:00)
[2017-11-30] MEDS ORDERED: ASPIRIN 81 MG ECTAB PO SCH (09:00)
--- NOTE | 2017-11-30 09:01 | Discharge Instructions ---
Discharge Instructions Date of Service Nov 30, 2017. Admission Reason for Admission: Exertional Chest Pain Discharge Discharge Diagnosis / Problem: Exertional Chest pain Discharge Goals Goal(s): Decrease discomfort, Improve function, Increase independence, Improve disease control Activity Recommendations Activity Limitations: per Instructions/Follow-up section Lifting Limitations: no more than 25 pounds, gradually increase as tolerated Exercise/Sports Limitations: rest today, gradually increase as tolerated May Resume Sexual Activity: when tolerated Shower/Bathe: no limitations Driving or Machine Use: resume 1 day after discharge . Instructions / Follow-Up Instructions / Follow-Up You were admitted to [facility] with exertional chest pain and diagnosed with Coronary Artery Disease and underwent cardiac catheterization by Dr. Albarran on . 1 drug eluting stent was placed in the LAD (main vessel of the heart). During your stay here you were treated with intravenous medications for pain, anti-platelet agents, and other supportive care. It is important for you to attempt to lose some weight ( 10-15 lbs) by eating a healthier diet and exercising as tolerated. Start exercising gradually, you may do light physical activity until seen by cardiology. Your goal should be to work up 25 minutes of cardiac activity at least 5 days per week. Please discuss this with cardiology at your next appointment Medications: Continue taking your medications as prescribed. Continue taking Plavix 75 mg daily, ASA 81 mg daily, and atorvastatin 80 mg daily as newly prescribed. Appointments: Follow up with PCP within 1 week. Follow up with cardiac rehab and cardiology for a routine appointment within 1- 2 weeks. Current Hospital Diet Patient's current hospital diet: AHA Diet (Heart Healthy) Discharge Diet Recommended Diet: AHA Diet (Heart Healthy) Procedures Procedures Performed: Cardiac Cath 11/29/17 Pending Studies Studies pending at discharge: no Laboratory Results Hemoglobin A1c Test 11/29/17 06:49 Range/Units Estimated Average Glucose 103 mg/dl Hemoglobin A1c 5.2 4.5-5.6 % Lipid Panel Test 11/28/17 10:37 Range/Units Triglycerides Level 216 H 0-150 mg/dl Cholesterol Level 203 H 0-200 mg/dl HDL Cholesterol 38 mg/dl Cholesterol/HDL Ratio 5.3 LDL Cholesterol, Calculated 122 mg/dl Medical Emergencies . Who to Call and When: Medical Emergencies: If at any time you feel your situation is an emergency, please call 911 immediately. . Non-Emergent Contact Non-Emergency issues call your: Primary Care Provider, General Doc Call Non-Emergent contact if: temperature is above 100.5, your pain is not controlled, your pain is worsening, your pain is unusual for you, your pain is concerning you, you have any medication questions other concerns with your health. Call 911 or go directly to the Emergency Department if you experience any of the following: Chest pain, chest tightness, shortness of breath, abdominal pain , lightheadedness, dizziness, gastrointestinal bleeding, or have any other concerns regarding your health. . Past History Medical & Surgical History: (1) Exertional chest pain (2) CAD (coronary artery disease) (3) S/P coronary artery stent placement . "Provider Documentation" section prepared by Mary Campo. . [place] Drug Monitoring Program Search Results: no issues identified
[2017-11-30 09:38] VITALS: BP 134/89; PULSE 52; TEMP 36.5; O2SAT 96
--- NOTE | 2017-11-30 15:37 | Discharge Summary ---
Discharge Summary Date of Service Nov 30, 2017. Discharge Summary Admission Date: Nov 28, 2017 at 13:04 Discharge Date: Nov 30, 2017 Discharge Disposition: Home Principal Diagnosis: Anginal chest pain Problems/Secondary Diagnoses: Medical Problems: (1) CAD (coronary artery disease) (2) Depression Surgical Problems: (1) S/P coronary artery stent placement Procedures: CHEST ONE VIEW PORTABLE 11/28/17 IMPRESSION: AP portable study. No acute findings. Cardiac Catheterization 11/29 Findings: LM - Angiographically normal LAD - 95% mid LAD stenosis; distal luminal irregularities Circumflex - Large caliber vessel; luminal irregularities; gives off 3 OMs'; large 2nd OM with 40-50% proximal stenosis RCA - Dominant, large vessel; 20% proximal; 20-30% mid; distal luminal irregularities 2D Echo 11/29 * -- Conclusions -- * Left ventricular systolic function is normal. * Grade I diastolic dysfunction, (abnormal relaxation pattern). * Right ventricular systolic pressure is normal. * Abnormal exercise echocardiogram with development of index symptoms and wall motion abnormality suggestive of ischemia in the LAD territory Consultations: Cardiology Medication Reconciliation New Medications: Aspirin (Aspirin EC Low Dose) 81 Mg Ectab 81 MG PO QAM for 30 Days, #30 TAB Atorvastatin (Lipitor) 80 Mg Tab 1 TAB PO DAILY for 30 Days, #30 TAB 0 Refills Clopidogrel Bisulfate (Clopidogrel) 75 Mg Tab 75 MG PO QAM for 30 Days, #30 TAB Continued Medications: Escitalopram (Lexapro) 10 Mg Tab 10 MG PO DAILY, TAB Lisinopril (Zestril) 5 Mg Tab 5 MG PO DAILY, TAB Ranitidine (Zantac) 150 Mg Tab 150 MG PO BID, TAB Discontinued Medications: Red Yeast Rice Extract (Red Yeast Rice) 300 Mg Cap 600 MG PO BID Discharge Exam The patient was seen and examined this morning. Pt reports doing well today. He denies any chest pain, shortness of breath, exertional pain, palpitations or flutter. Discussion was held with pt and his at bedside regarding medications and lifestyle modifications with diet and exercise. All their questions and concerns were addressed. ROS: Constitutional: No fever, No chills, No sweats, No fatigue Eyes: No diplopia, No problem reported ENT: No nasal symptoms, No trouble swallowing Respiratory: No cough, No wheezing, No shortness of breath Cardiovascular: No chest pain, No orthopnea, No edema Abdomen: No pain, No nausea, No vomiting, No diarrhea, No constipation Musculoskeletal: No joint pain, No muscle pain Male : No dysuria Neurologic: No weakness, No numbness/tingling Physical Exam General Appearance: WD/WN, no apparent distress, + obese Eyes: PERRL, EOMI ENT: hearing grossly normal, pharynx normal Neck: supple, no JVD Respiratory/Chest: chest non-tender, lungs clear, no respiratory distress, no accessory muscle use Cardiovascular: regular rate, rhythm, + systolic murmur Abdomen: normal bowel sounds, non tender, soft Extremities: non-tender, no pedal edema, no calf tenderness Neurologic/Psychiatric: alert, normal mood/affect, oriented x 3 Skin: normal color, warm/dry Hospital Course 56 yo M with Anginal Chest pain Diastolic CHF HTN HLD Obesity, BMI 33.3 - Admitted to tele - Troponins negative x 3 - Pt failed stress treadmill test so underwent cardiac cath on 11/[address] Albarran. 1 JAMAL was placed to the LAD. Continue plavix and asa for dual antiplatelet therapy Started atorvastatin 40 mg QPM as high statin therapy - Diet and weight loss encouraged at bedside again he admits to gaining 25 lbs in the last 1.5 yrs. Ask that pcp monitors. - Check hemoglobin A1c = 5.2 - Drinks 3 alcoholic drinks per week. - No hx of smoking however was exposed to second hand x 18 years d/t parents smoking in home. DVT ppx: heparin, teds, scds CODE STATUS: FULL CODE Disposition: From home, lives with , discharge to home today. Supervising Note Dr. Padilla I performed a history and physical examination on the patient. I reviewed above note and agree with it. I discussed plan with APC and patient. During my face to face encounter with the patient, I answered all of the patient's questions. Patient was concerned about when he will start cardiac rehab. This willl occur after he follows up with Dr. Albarran. He will see cardiology in about 3 weeks. Cardio will schedule his appointment. Total Time Spent: Greater than 30 minutes This includes examination of the patient, discharge planning, medication reconciliation, and communication with other providers. Discharge Instructions Please refer to the electronic Patient Visit Report (Discharge Instructions) for additional information. Follow-Up Follow up with PCP within 1 week. Follow up with cardiac rehab and cardiology for a routine appointment within 1- 2 weeks. Additional Copies To Marisa Hernadez C.R.N.P.
== END 2017-11-30 10:20 | disposition home or self-care (01) ==
LOC: C.EDB 10:05 → C.2T 13:04 → ENRESERV 14:06
PROVIDERS: ADMIT Internal Medicine; ATTEND Internal Medicine Sports Medicine
DX: I20.9 Angina pectoris, unspecified (principal); I50.30 Unspecified diastolic (congestive) heart failure; I25.10 Atherosclerotic heart disease of native coronary artery without angina pectoris; I10 Essential (primary) hypertension; R94.31 Abnormal electrocardiogram [ECG] [EKG]; E78.5 Hyperlipidemia, unspecified; E66.9 Obesity, unspecified; F32.9 Major depressive disorder, single episode, unspecified